=== PATIENT | female | born 1995 | race Caucasian/White ===

== ENCOUNTER → 2023-06-24 | Outpatient (CLI) | payer OTHER ==
[~2023-06-24] MED LIST: Lidocaine PF 1% (10 MG/ML) 5 ML VIAL ONE; Triamcinolone 40 MG/ML 1 ML VIAL ONE
== END ==
LOC: MHCPAIN 09:34
DX: M79.18 Myalgia, other site (principal); M54.81 Occipital neuralgia
CPT/HCPCS: J0665; J1040; J3301